=== PATIENT | male | born 1960 | race Caucasian/White ===

== ENCOUNTER → 2020-02-09 | Outpatient (CLI) | payer OTHER ==
[~2020-02-09] MED LIST: ASPIRIN325 MG PO; CRESTOR10 MG PO; HYDROCODON-ACE1 EA12 PO; IOPAMIDOL 370 MG/ML 200 ML INFUS..BTL INJ ONE; PLAVIX75 MG PO; SODIUM CHLORIDE 0.9% 100 ML ONE; TYLENOL WITH C1 EACH PO
[2020-02-09 09:40] LABS: BLOOD UREA NITROGEN 12 mg/dL (7-26); BUN/CREATININE RATIO 13 (6-25); CREATININE, SERUM 0.94 mg/dL (0.72-1.25); EST GLOMERULAR FILTRATION RATE > 60 ML/MIN (60-)
--- NOTE | 2020-02-09 11:07 | Diagnostic Imaging Report ---
EXAMINATION: CT angiogram of the neck CLINICAL HISTORY: Severe right carotid artery stenoses, prior coronary stenting x3 COMPARISON STUDIES: None TECHNIQUE: Axial images were obtained from the thoracic inlet. Coronal and sagittal images reconstructed from the axial data. For optimization of of anatomic evaluation, multi-planar reconstructions, maximum intensity projections, and advanced 3D off-line post-processing was obtained and performed on a dedicated stand-alone workstation under the direct supervision of the interpreting physician. Intravenous contrast: 100 mL of Isovue-370. Dose modulation, iterative reconstruction, and/or weight based adjustment of the mA/kV was utilized to reduce the radiation dose to as low as reasonably achievable. FINDINGS: If present, stenosis of the carotid bulbs is measured based on NASCET criteria i.e area of maximum stenosis compared to the cervical ICA distal to the bulb. Aortic arch and origin of the major vessels: Tiny calcified plaque near the origin of the right vertebral artery without associated stenosis. Otherwise the origin of the bilateral vertebral and carotid arteries is patent.. No significant abnormalities of the aortic arch. Common carotid arteries: Right: Patent. No abnormalities. Left :Patent. No abnormalities. Carotid bulbs: Right: Prominent short segment mostly soft atherosclerotic plaque in the right carotid bulb approximately 9 mm from the bifurcation, there is severe stenosis (greater than 70%) at the narrowest point per NASCET criteria. The length of the femoral stenosis is about 1 cm. Left :Minimal soft and calcified plaque without associated stenoses (0%). Internal carotid arteries: Right: Patent. No abnormalities. Left: Patent. No abnormalities. Vertebral arteries: Patent. No abnormalities. Incidental findings: -Mild mucosal inflammatory thickening and partial opacification of the bilateral frontal, ethmoidal and maxillary sinuses. Possible right maxillary sinusitis given underlying right maxillary molars periapical lucencies and small focal cortical bone dehiscence. -Prominent chronic nasal septal deviation with dominant left superior and right inferior deviation. -Degenerative changes of the cervical spine resulting in moderate spinal canal and bilateral foraminal stenoses at C6-7. -Partially visualized bilateral lung apices emphysema changes and subpleural blebs. IMPRESSION: 1. Severe stenosis of the right carotid bulb (greater than 70%), mostly due to soft atherosclerotic plaque. 2. Minimal atherosclerotic changes of the left carotid bulb without associated stenoses (0%). 3. Unremarkable vertebral arteries. Signed by: Dr. Cookie Flores M.D. on 02/09/2020 11:03 AM
== END ==
LOC: CT 08:47
PROVIDERS: ATTEND Internal Medicine Cardiovascular Disease
DX: I65.21 Occlusion and stenosis of right carotid artery (principal)
CPT/HCPCS: 36415; 70498; 82565; 84520; J7050; Q9967

== ENCOUNTER 2020-02-16 07:38 | Inpatient (IN) | payer OTHER ==
[2020-02-11 15:07] LABS: BASOPHILS % 0.5 % (0.0-1.0); EOSINOPHILS # (AUTO) 0.3 (0.0-0.4); EOSINOPHILS % 3.3 % (0.0-6.0); HEMATOCRIT 42.7 % (38.2-49.6); HEMOGLOBIN 14.1 g/dL (14.0-18.0); LYMPHOCYTES # (AUTO) 2.5 (1.0-3.2); LYMPHOCYTES % 29.2 % (18.0-39.1); MEAN CORPUSCULAR HEMOGLOBIN 31.7 pg (28-32); MONOCYTES # (AUTO) 0.7 (0.2-0.8); MONOCYTES % 7.9 % (4.4-11.3); NEUTROPHILS # (AUTO) 4.9 (2.1-6.9); NEUTROPHILS % 58.7 % (38.7-80.0); PLATELET COUNT 244 x10e3/uL (140-360); RED BLOOD COUNT 4.45 x10e6/uL (4.3-5.7); RED CELL DISTRIBUTION WIDTH 13.2 % (11.7-14.4)
[2020-02-11 15:21] LABS: INR 0.95; PROTHROMBIN TIME 13.2 seconds (11.9-14.5)
[2020-02-11 15:24] LABS: ANION GAP 12.3 mmol/L (8-16); BLOOD UREA NITROGEN 10 mg/dL (7-26); BUN/CREATININE RATIO 11 (6-25); CALCIUM 9.6 mg/dL (8.4-10.2); CARBON DIOXIDE 29 mmol/L (22-29); CHLORIDE 104 mmol/L (98-107); CREATININE, SERUM 0.92 mg/dL (0.72-1.25); EST GLOMERULAR FILTRATION RATE > 60 ML/MIN (60-); GLUCOSE 75 mg/dL (74-118); POTASSIUM 4.3 mmol/L (3.5-5.1); SODIUM 141 mmol/L (136-145)
--- NOTE | 2020-02-11 15:44 | Diagnostic Imaging Report ---
X-ray chest PA and lateral Comparison: None History: Preop Findings: Cardiomediastinal silhouettes unremarkable. No pleural effusion or pneumothorax. A right pleural-based opacity likely representing sequela of multiple healed right rib fractures laterally. Low flat diaphragms suggesting COPD. Lung gates otherwise unremarkable. Upper abdomen unremarkable. Impression: No acute cardiopulmonary disease. Possible COPD. Signed by: Kunal Cruz MD on 02/11/2020 3:41 PM
[2020-02-16] VITALS (11 sets, daily range): BP systolic 119–176; BP diastolic 66–74
[~2020-02-16] VITALS: Ht 157.5 cm; Wt 58.5 kg
[~2020-02-16 07:38] MED LIST changes: -IOPAMIDOL 370 MG/ML 200 ML INFUS..BTL INJ ONE; -SODIUM CHLORIDE 0.9% 100 ML ONE
--- OUTSIDE RECORDS SUMMARY | 2020-02-16 07:45 | XMS REPORT ---
Author Author [facility] Organization [facility] Address [address] [place] [address] Dr. [address]. [address] [place] [address] Phone Unavailable Care Team Providers Care [employer] Name Role Phone ELISA MERCADO Attphys Unavailable CATINA MARIN Attmanuel Unavailable Problems This patient has no known problems. Allergies, Adverse Reactions, Alerts This patient has no known allergies or adverse reactions. Medications This patient has no known medications. Procedures This patient has no known procedures. Results Test Description Test Time Test Comments Results Result Comments Source CHEST 2 VIEWS 2020-02-11 15:31:00 [place] [address] Patient Name: CLAUDIA GARCIA MR #: [id number] : 1960 Age/Sex: 59/M Req #: [id number] Adm Physician: Ordered by: ELISA MERCADO MD Report #: [id number] Location: OR Room/Bed: Procedure: [id number] DX/CHEST 2 VIEWS Exam Date: 02/11/20 Exam Time: 1420 REPORT STATUS: Signed X-ray chest PA and lateral Comparison: None History: Preop Findings: Cardiomediastinal silhouettes unremarkable. No pleural effusion or pneumothorax. A right pleural-based opacity likely representing sequela of multiple healed right rib fractures laterally. Low flat diaphragms suggesting COPD. Lung gates otherwise unremarkable. Upper abdomen unremarkable. Impression: No acute cardiopulmonary disease. Possible COPD. Signed by: Nicholas Hutson MD on 02/11/2020 3:41 PM Dictated By: NICHOLAS HUTSON MD 40 Transcribed By: JANE on 02/11/201540 COPY TO: ELISA MERCADO MD CTA NECK 2020-02-09 10:20:00 [place] [address] Patient Name: CLAUDIA GARCIA MR #: [id number] : 1960 Age/Sex: 59/M Req #: [id number] Adm Physician: Ordered by: CATINA MARIN MD Report #: [id number] Location: CT Room/Bed: Procedure: [id number] CT/CTA NECK Exam Date: 02/09/20 Exam Time: 0950 REPORT STATUS: Signed EXAMINATION: CT angiogram of the neck CLINICAL HISTORY: Severe right carotid artery stenoses, prior coronary stenting x3 COMPARISON STUDIES: None TECHNIQUE: Axial images were obtained from the thoracic inlet. Coronal and sagittal images reconstructed from the axial data. For optimization of of anatomic evaluation, multi-planar reconstructions, maximum intensity projections, and advanced 3D off-line post-processing was obtained and performed on a dedicated stand-alone workstation under the direct supervision of the interpreting physician. Intravenous contrast: 100 mL of Isovue-370. Dose modulation, iterative reconstruction, and/or weight based adjustment of the mA/kV was utilized to reduce the radiation dose to as low as reasonably achievable. FINDINGS: If present, stenosis of the carotid bulbs is measured based on NASCET criteria i.e area of maximum stenosis compared to the cervical ICA distal to the bulb. Aortic arch and origin of the major vessels: Tiny calcified plaque near the origin of the right vertebral artery without associated stenosis. Otherwise the origin of the bilateral vertebral and carotid arteries is patent.. No significant abnormalities of the aortic arch. Common carotid arteries: Right: Patent. No abnormalities. Left :Patent. No abnormalities. Carotid bulbs: Right: Prominent short segment mostly soft atherosclerotic plaque in the right carotid bulb approximately 9 mm from the bifurcation, there is severe stenosis (greater than 70%) at the narrowest point per NASCET criteria. The length of the femoral stenosis is about 1 cm. Left :Minimal soft and calcified plaque w ithout associated stenoses (0%). Internal carotid arteries: Right: Patent. No abnormalities. Left: Patent. No abnormalities. Vertebral arteries: Patent. No abnormalities. Incidental findings: -Mild mucosal inflammatory thickening and partial opacification of the bilateral frontal, ethmoidal and maxillary sinuses. Possible right maxillary sinusitis given underlying right maxillary molars periapical lucencies and small focal cortical bone dehiscence. -Prominent chronic nasal septal deviation with dominant left superior and right inferior deviation. -Degenerative changes of the cervical spine resulting in moderate spinal canal and bilateral foraminal stenoses at C6-7. -Partially visualized bilateral lung apices emphysema changes and subpleural blebs. IMPRESSION: 1. Severe stenosis of the right carotid bulb (greater than 70%), mostly due to soft atherosclerotic plaque. 2. Minimal atherosclerotic changes of the left carotid bulb without associated stenoses (0%). 3. Unremarkable vertebral arteries. Signed by: Dr. John Flores M.D. on 02/09/2020 11:03 AM Dictated By: JOHN FLORES MD 1103 Transcribed By: JANE on 02/09/20 1103 COPY TO: CATINA MARIN MD
[2020-02-16] MEDS ORDERED: HEPARIN SOD/SOD CHLORIDE 1,000 ML ONE (09:02)
[2020-02-16] MEDS ORDERED: LIDOCAINE HCL (LTA) 4 ML SOLN ONE (10:00)
[2020-02-16] MEDS ORDERED: ACETAMINOPHEN 1000 MG/100 ML 100 ML IV ONE (10:00)
[2020-02-16] MEDS ORDERED: HEPARIN SOD (PORCINE) 1000 UNIT/ML 30ML ONE (10:14)
[2020-02-16] MEDS ORDERED: THROMBIN FOR SOLN 5,000 UNIT VIAL ONE (10:14)
[2020-02-16] MEDS ORDERED: LIDOCAINE HCL 1% 2 ML AMP ONE (10:14)
[2020-02-16] MEDS ORDERED: PROTAMINE SULFATE 10 MG/ML 5 ML VIAL ONE (10:14)
[2020-02-16] MEDS ORDERED: MUPIROCIN 2% OINT 22 GM TUBE ONE (10:14)
[2020-02-16] MEDS ORDERED: SUGAMMADEX SODIUM 200 MG/2 ML VIAL IV ONE (10:15)
[2020-02-16] MEDS ORDERED: SODIUM CHLORIDE 0.9% 500ML 500 ML ONE (10:15)
[2020-02-16] MEDS ORDERED: HEPARIN SOD (PORCINE) 5,000 UNIT/ML VIAL ONE (10:17)
[2020-02-16] MEDS ORDERED: HYDRALAZINE HCL 20 MG/ML VIAL ONE (13:07)
[2020-02-16] MEDS ORDERED: FENTANYL CITRATE/PF 100MCG/2 ML INJ ONE ×2 (13:08→18:59)
--- OUTSIDE RECORDS SUMMARY | 2020-02-16 13:47 | XMS REPORT ---
Author Author [facility] Organization [facility] Address [address] [place] [address] Dr. [address]. [address] [place] [address] Phone Unavailable Care Team Providers Care Field Administrator Name Role Phone ELISA MERCADO Attphys Unavailable CATINA MARIN Attmanuel Unavailable Problems This patient has no known problems. Allergies, Adverse Reactions, Alerts This patient has no known allergies or adverse reactions. Medications This patient has no known medications. Procedures This patient has no known procedures. Results Test Description Test Time Test Comments Results Result Comments Source CHEST 2 VIEWS 2020-02-11 15:31:00 [place] [address] Patient Name: CLAUDIA GARCIA MR #: [id number] : 1960 Age/Sex: 59/M Req #: [id number] Adm Physician: Ordered by: ELISA MERCADO MD Report #: [id number] Location: OR Room/Bed: Procedure: [id number] DX/CHEST 2 VIEWS Exam Date: 02/11/20 Exam [...] ELISA MERCADO MD CTA NECK 2020-02-09 10:20:00 [place] [address] Patient Name: CLAUDIA GARCIA MR #: [id number] : 1960 Age/Sex: 59/M Req #: [id number] Adm Physician: Ordered by: CATINA MARIN MD Report #: [id number] Location: CT Room/Bed: Procedure: [id number] CT/CTA NECK Exam Date: 02/09/20 Exam Time: [...]
--- NOTE | 2020-02-16 14:00 | NUR ---
Rec'd patient to Room 195, right neck surgical site c/d/i, no drainage, ice pack in place.
[2020-02-16 14:12] LABS: BASOPHILS # (AUTO) 0.1 (0.0-0.1); BASOPHILS % 0.6 % (0.0-1.0); EOSINOPHILS # (AUTO) 0.1 (0.0-0.4); EOSINOPHILS % 1.4 % (0.0-6.0); HEMATOCRIT 39.9 % (38.2-49.6); HEMOGLOBIN 13.2 g/dL (14.0-18.0); LYMPHOCYTES # (AUTO) 0.7 (1.0-3.2); LYMPHOCYTES % 8.8 % (18.0-39.1); MEAN CORPUSCULAR HEMOGLOBIN 31.3 pg (28-32); MEAN CORPUSCULAR HGB CONC 33.1 g/dL (31-35); MEAN CORPUSCULAR VOLUME 94.5 fL (81-99); MONOCYTES # (AUTO) 0.2 (0.2-0.8); NEUTROPHILS # (AUTO) 7.3 (2.1-6.9); NEUTROPHILS % 86.6 % (38.7-80.0); PLATELET COUNT 207 x10e3/uL (140-360); RED BLOOD COUNT 4.22 x10e6/uL (4.3-5.7); RED CELL DISTRIBUTION WIDTH 13.1 % (11.7-14.4)
[2020-02-16 14:33] LABS: ALANINE AMINOTRANSFERASE 17 IU/L (0-55); ALBUMIN 3.5 g/dL (3.5-5.0); ALBUMIN/GLOBULIN RATIO 1.5 (0.8-2.0); ALKALINE PHOSPHATASE 54 IU/L (40-150); ANION GAP 13.9 mmol/L (8-16); BLOOD UREA NITROGEN 11 mg/dL (7-26); BUN/CREATININE RATIO 15 (6-25); CALCIUM 7.8 mg/dL (8.4-10.2); CARBON DIOXIDE 22 mmol/L (22-29); CHLORIDE 105 mmol/L (98-107); CREATININE, SERUM 0.73 mg/dL (0.72-1.25); EST GLOMERULAR FILTRATION RATE > 60 ML/MIN (60-); GLUCOSE 132 mg/dL (74-118); POTASSIUM 3.9 mmol/L (3.5-5.1); SODIUM 137 mmol/L (136-145)
[2020-02-16] MEDS ORDERED: HYDROCODONE/APAP 5MG-325MG TAB PO PRN (14:45)
[2020-02-16] MEDS ORDERED: MORPHINE SULFATE 2 MG/ML SYR 1ML IV PRN (14:45)
[2020-02-16] MEDS ORDERED: LABETALOL HCL 5 MG/ML 20ML VIAL IV PRN (14:45)
[2020-02-16] MEDS: HYDROCODONE/APAP 5MG-325MG TAB PO PRN (16:16)
[2020-02-16] MEDS ORDERED: ROCURONIUM BROMIDE 10 MG/ML 5ML VIAL IV ONE (16:55)
[2020-02-16] MEDS ORDERED: SEVOFLURANE INHAL SOLN 250 ML PEN BTL ONE (16:55)
[2020-02-16] MEDS ORDERED: DEXAMETHASONE SOD PHOS INJ 4 MG/ML VIAL ONE (16:55)
[2020-02-16] MEDS ORDERED: ONDANSETRON HCL INJ 2MG/ML 2ML 2 MG/ML VIAL ONE (16:55)
[2020-02-16] MEDS ORDERED: LIDOCAINE HCL 2% LOCAL INJ 5 ML SDV VIAL INJ ONE (16:55)
[2020-02-16] MEDS ORDERED: PROPOFOL IV EMULSION 10 MG/ML 20 ML VIAL ONE (16:55)
[2020-02-16] MEDS: SODIUM CHLORIDE 0.9% 1000ML 1,000 ML IV SCH (17:04)
[2020-02-16] MEDS: MORPHINE SULFATE INJ 4 MG/ML INJ 1ML IV PRN ×2 (18:30→22:06)
[2020-02-16] MEDS ORDERED: MIDAZOLAM HCL 2 MG/2 ML VIAL ONE (18:59)
--- NOTE | 2020-02-16 19:00 | NUR ---
Report received. Assumed care. Assessment done. See interventions. Refuses IVF. Placed SCDs on an shortly after pt requested them to be removed. Voids small amts clear yellow urine. Art line to right radial.
[2020-02-16] MEDS ORDERED: CRESTOR 10MG PO SCH (21:00)
--- NOTE | 2020-02-16 22:06 | NUR ---
Medicated for c/o pain.
--- NOTE | 2020-02-16 23:11 | Consultation ---
DATE OF CONSULTATION: Cardiology Consult HISTORY OF PRESENT ILLNESS: Jesus Alberto Escamilla is a 59-year-old male with primary medical historyhypertension, CAD, PAD, with previous coronary and peripheral stents, hyperlipidemia, previous smoker, (quit 2 months ago), admitted for symptomatic carotid stenosis, of which continued after the peripheral stents, hyperlipidemia, previous smoker, admitted for symptomatic carotid stenosis, with a 95% stenosis on the recent carotid duplex, now status post right carotid endarterectomy on 02/16/2020. The patient denies any chest pain, dyspnea, or any dizziness postop. PAST MEDICAL HISTORY: Hyperlipidemia, CAD, PAD/PVD with right femoral stent. PAST SURGICAL HISTORY: Coronary and peripheral stent. FAMILY HISTORY: Mother has hypertension. A brother had of liver cancer. Dad had possible hypertension. SOCIAL HISTORY: Tobacco smoker, 1/2 pack a day, quit 2 months ago. ETOH use. He drinks 2 cans of beers daily. MEDICATIONS: Home medications includes aspirin 325 mg tablet, Plavix 75 mg daily, rosuvastatin 10 mg tablet daily. ALLERGIES: NO KNOWN ALLERGIES. PHYSICAL EXAMINATION: GENERAL APPEARANCE: He is well developed, well nourished, in no acute distress. HEENT: Head is normocephalic, atraumatic. Eyes, pupils equal, round, and reactive to light and accommodation. Sclerae are nonicteric. Ears normal. Oral cavity and mucosa are moist. Throat is clear. NECK AND THYROID: Right neck, no hematoma. Neck is supple. Full range of motion. No cervical lymphadenopathy. SKIN: Warm and dry. No suspicious lesion. HEART: Regular rate and rhythm, S1 and S2 normal. No murmurs. LUNGS: Clear to auscultation bilaterally. ABDOMEN: Soft, nontender, and nondistended. Bowel sounds are present. EXTREMITIES: No clubbing, no cyanosis, no edema. NEUROLOGIC: Nonfocal. Motor strength of the upper and lower extremities are normal, sensory exam intact. IMPRESSION AND PLAN: The patient is a 59-year-old, admitted status post right carotid endarterectomy. 1. Close hemodynamic postop monitoring in the ICU. Keep systolic blood pressure less than 160. 2. Monitor right neck operative site and report any complication. 3. Restart lipid-lowering statin and anti-platelet. 4. Further recommendation will follow according to the patient's clinical course. Thank you for this consultation. Dictated by Mikala Palomo, [employer] MD ALICE Callahan/SHAZIA /[id number]
[2020-02-17] VITALS (10 sets, daily range): BP systolic 110–159; BP diastolic 57–73
--- NOTE | 2020-02-17 00:36 | Consultation ---
DATE OF CONSULTATION: Pulmonary Critical Care consultation CHIEF COMPLAINT: Hypertension, atherosclerosis, and recent carotid endarterectomy. HISTORY OF PRESENT ILLNESS: The patient is a 59-year-old man. He has a history of hypertension and atherosclerosis. He was found to have a 95% stenosis on the right coronary artery. He has a history of hypertension and atherosclerosis. Preoperative evaluation showed severe right carotid stenosis. He underwent a right carotid endarterectomy today without difficulty. A stent was used. Dacron graft was placed. The patient is now in the intensive care unit. He is not having headache or any neurological problems. He does complain of frequent urination. He has some mild pain at the incision site. PAST MEDICAL HISTORY: 1. Hypertension. 2. Coronary artery disease. PAST SURGICAL HISTORY: 1. Status post carotid endarterectomy as noted above. 2. Prior hernia repair. SOCIAL HISTORY: The patient is not an active smoker or drinker. ALLERGIES: NO KNOWN DRUG ALLERGIES. FAMILY HISTORY: Family history is noncontributory. REVIEW OF SYSTEMS: There is no fever. He has no headache. He has no neck pain. He does have some pain at the incision. He does not complain of chest pain. There is no dyspnea. He has no focal neurological complaints. PHYSICAL EXAMINATION: VITAL SIGNS: The patient is afebrile. The vital signs are stable. HEENT: No facial swelling or erythema. CARDIAC: Regular rate and rhythm with normal S1, S2. LUNGS: Auscultation of lungs reveals clear breath sounds bilaterally. There is no wheezing. ABDOMEN: Soft, nontender. There is no rebound or guarding. EXTREMITIES: No leg edema or calf tenderness. There is no cyanosis clubbing. SKIN: No rashes. NEUROLOGICAL: No focal abnormalities. LABORATORY DATA: White blood cell count is 8.4 and hemoglobin of 13.2. The platelet count is 207. The BUN to creatinine ratio is 11 to 0.73. The other electrolytes are within normal limits. RADIOGRAPHIC DATA: Chest x-ray shows no active disease. IMPRESSION: 1. Hypertension. 2. Coronary artery disease with prior stents. 3. Recent carotid endarterectomy. PLAN: 1. Continue to monitor blood pressure. 2. Out of bed as tolerated. 3. Care of incision. 4. Possible discharge home tomorrow. MD JOSIE Rodriguez/RISAL /[id number]
[2020-02-17] MEDS: SODIUM CHLORIDE 0.9% 1000ML 1,000 ML IV SCH (01:00)
[2020-02-17] MEDS: MORPHINE SULFATE INJ 4 MG/ML INJ 1ML IV PRN ×2 (01:25→04:45)
[2020-02-17 04:25] LABS: BASOPHILS % 0.2 % (0.0-1.0); HEMATOCRIT 39.7 % (38.2-49.6); HEMOGLOBIN 13.7 g/dL (14.0-18.0); LYMPHOCYTES % 7.8 % (18.0-39.1); MEAN CORPUSCULAR HEMOGLOBIN 31.9 pg (28-32); MEAN CORPUSCULAR HGB CONC 34.5 g/dL (31-35); MEAN CORPUSCULAR VOLUME 92.3 fL (81-99); MONOCYTES % 7.4 % (4.4-11.3); NEUTROPHILS % 84.3 % (38.7-80.0); PLATELET COUNT 250 x10e3/uL (140-360); RED CELL DISTRIBUTION WIDTH 13.2 % (11.7-14.4)
[2020-02-17 04:45] LABS: ALANINE AMINOTRANSFERASE 18 IU/L (0-55); ALBUMIN 3.7 g/dL (3.5-5.0); ALBUMIN/GLOBULIN RATIO 1.4 (0.8-2.0); ALKALINE PHOSPHATASE 55 IU/L (40-150); BLOOD UREA NITROGEN 10 mg/dL (7-26); BUN/CREATININE RATIO 13 (6-25); CARBON DIOXIDE 23 mmol/L (22-29); CHLORIDE 101 mmol/L (98-107); CREATININE, SERUM 0.76 mg/dL (0.72-1.25); EST GLOMERULAR FILTRATION RATE > 60 ML/MIN (60-); GLUCOSE 128 mg/dL (74-118); SODIUM 137 mmol/L (136-145)
[2020-02-17 04:53] LABS: CALCIUM 9.2 mg/dL (8.4-10.2)
[2020-02-17] MEDS ORDERED: CEFAZOLIN SOD 1 GM/NS 50ML 50 ML IV ONE (06:45)
--- NOTE | 2020-02-17 07:31 | NUR ---
Right arterial line d/c. Transfer to Med Surg and tele orders per written orders from Dr Dunaway.
--- NOTE | 2020-02-17 07:56 | NUR ---
Dr Dunaway to bedside.
[2020-02-17] MEDS: HYDROCODONE/APAP 5MG-325MG TAB PO PRN ×2 (08:54→14:51)
[2020-02-17] MEDS ORDERED: SODIUM CHLORIDE FLUSH 10 ML SYR INJ PRN (09:00)
[2020-02-17] MEDS ORDERED: ENOXAPARIN SOD INJ 40 MG/0.4 ML SYR SC SCH (09:00)
--- NOTE | 2020-02-17 09:03 | Progress Note ---
DATE: SUBJECTIVE: The patient has no new complaints. He does not have any neurological findings. His blood pressure is controlled. PHYSICAL EXAMINATION: VITAL SIGNS: The blood pressure is 151/60, saturation is 95% on room air and the pulse is 65. HEENT: Shows no facial swelling or erythema. CARDIAC: Reveals regular rate and rhythm with normal S1, S2. LUNGS: Auscultation of lungs reveals clear breath sounds bilaterally. There is no wheezing. ABDOMEN: Soft, nontender. There is no rebound or guarding. EXTREMITIES: Show no leg edema or calf tenderness. There is no cyanosis or clubbing. SKIN: Shows no rashes. NEUROLOGICAL: Shows no focal abnormalities. LABORATORY DATA: White blood cell count is 13, hemoglobin is 13.7, the platelet count is 250. BUN to creatinine ratio is normal. The other electrolytes are within normal limits. IMPRESSION: 1. Hypertension. 2. Coronary artery disease with prior stents. 3. Recent carotid endarterectomy. PLAN: 1. Continue to monitor blood pressure. 2. Out of bed as tolerated. 3. Probable discharge home this afternoon. Reji Alvarez MD [facility]/MODL /[id number]
[2020-02-17] MEDS ORDERED: CLOPIDOGREL BISULFATE 75 MG TAB PO ONE (09:35)
--- NOTE | 2020-02-17 11:23 | NUR ---
Report called to OZZY Reina for Room 115.
--- NOTE | 2020-02-17 11:39 | NUR ---
The pt. was received from ICU ambulatory to room 115 sp carotid endarterectomy. There is a dressing intact and the pt. is comp of pain upon arrival. He was provided pain med and escorted to the bathroom.
--- NOTE | 2020-02-17 15:26 | NUR ---
Mikala the PA for Dr. Alvarez returned the paged and gave order to discharged the pt.
--- NOTE | 2020-02-17 17:19 | NUR ---
The pt. has been discharged home in stable condition and was provided scripts and discharge information.
--- NOTE | 2020-02-22 18:51 | Operative Report ---
DATE OF PROCEDURE: 02/16/2020 SURGEON: Gilberto Dunaway MD ENTRY PROCESSOR: Tanya. PREOPERATIVE DIAGNOSIS: Severe right carotid stenosis. POSTOPERATIVE DIAGNOSIS: Severe right carotid stenosis. TITLE OF OPERATION: Right carotid endarterectomy. DESCRIPTION OF OPERATION: After the satisfactory accomplishment of general anesthesia, the patient's right neck was prepped and draped in sterile fashion. A standard right carotid incision was made along the anterior border of the sternomastoid muscle. The incision was carried down through the subcutaneous tissues to expose the right common carotid artery. The vessel was dissected free from the surrounding tissues and looped with a vessel loop. The dissection was carried distally to expose the internal carotid artery and the external carotid artery and its branches. Care was taken to identify and preserve all nerve structures in the region. Systemic heparin was given through a central vein canula for the purposes of anticoagulation. The common external and internal carotid arteries were briefly cross-clamped. A long incision was made in the common carotid artery and carried distally through the bifurcation and well up into the internal carotid artery. A severely obstructing atherosclerotic plaque was quickly encountered. The plaque was removed using standard endarterectomy technique. Following this, the surface of the vessel was smoothed and all loose debris was carefully removed. Heparinized saline flushes were routinely employed. A previously constructed Dacron patch was brought into the operative field. The patch was used to close the arteriotomy site. Running 7-0 Prolene was used for this patch closure. Prior to completing the closure, the shunt was removed from within the carotid artery and the vessel was flushed free from all air and debris. Once the sutures were tied, excellent pulses were located within the patch area and beyond. Protamine was then given to counteract the effects of the heparin that had been given before any clamps were applied. All bleeding points were cauterized, ligated, or oversewn. The wound was thoroughly irrigated with antibiotic solution and then the wound was closed in layers with interrupted 2-0 Vicryl for the deep tissues and Monocryl subcuticular stitches for the skin. The patient tolerated the procedure well and was awakened in the operating room to ensure proper neurologic function. The patient was returned to the Intensive Care Unit in good condition. Gilberto Dunaway MD [facility]/MODL /[id number]
== END 2020-02-17 16:17 | disposition home or self-care (01) | DRG 39 ==
LOC: OR 07:38 → PACU V 13:04 → ICU 14:00 → MED/SURG 02-17 11:36
PROVIDERS: ADMIT Thoracic Surgery (Cardiothoracic Vascular Surgery); ATTEND Thoracic Surgery (Cardiothoracic Vascular Surgery)
PROC: 03CH0ZZ Extirpation of Matter from Right Common Carotid Artery, Open Approach (ICD-10-PCS; 2020-02-16)
PROC: 03UH0JZ Supplement Right Common Carotid Artery with Synthetic Substitute, Open Approach (ICD-10-PCS; 2020-02-16)
PROC: 03CK0ZZ Extirpation of Matter from Right Internal Carotid Artery, Open Approach (ICD-10-PCS; principal; 2020-02-16 10:00)
DX: I65.21 Occlusion and stenosis of right carotid artery (principal); Z95.5 Presence of coronary angioplasty implant and graft; I10 Essential (primary) hypertension; I73.9 Peripheral vascular disease, unspecified; E78.5 Hyperlipidemia, unspecified; Z95.820 Peripheral vascular angioplasty status with implants and grafts; Z80.8 Family history of malignant neoplasm of other organs or systems; Z82.49 Family history of ischemic heart disease and other diseases of the circulatory system; Z87.891 Personal history of nicotine dependence; Z11.59 Encounter for screening for other viral diseases
CPT/HCPCS: 36415; 71046; 80048; 80053; 85025; 85610; 85730; 86850; 86900; 86920; 87635; 88304; 88311; C1768; J0360; J0690; J1100; J1644; J1650; J2001; J2250; J2270; J2405; J2720; J3010; J7030; J7040